=== PATIENT | male | born 1945 | race Caucasian/White ===

== ENCOUNTER 2018-05-29 08:04 | Observation (INO) ==
[2018-05-29] MEDS ORDERED: Sod Chloride 0.9% Inj 1,000 ML IV.SIG ONE (08:32)
--- NOTE | 2018-05-29 08:40 | ED ---
HPI General Chief Complaint: Syncope Stated Complaint: passed out Time Seen by Provider: 05/29/18 08:21 Source: patient Mode of arrival: ambulatory Limitations: no limitations History of Present Illness HPI narrative: Patient is a 72-year-old male with history of hypertension and colon cancer, presents the emergency room for evaluation of syncope. Patient reports that he woke up last night around midnight to use the restroom, reports that after he used the restroom, he was trying to walk to his bed and ended feeling lightheaded and dizzy and passed out. Patient was unsure how long he was passed out for. He is unsure if he hit his head. Patient reports that he was unable to get up from the floor after he had a syncopal episode, reports that he laid there all night. Patient reports that he has also been having diarrhea, reports that he had an episode of diarrhea while laying on the floor. Patient reports that this morning, he was able to get up and had multiple episodes of diarrhea before coming to the ER. Patient denies any headache, reports some dizziness, reports that he feels overall weak. Reports no chest pain, does endorse that he is feeling short of breath. Patient reports that he was seen yesterday for anxiety reaction and did have a CAT scan of his chest which showed no evidence of a pulmonary emboli. Related Data Previous Rx's Medication Instructions Recorded amlodipine 10 mg PO DAILY #14 tab 05/28/18 enalapril maleate 5 mg PO DAILY #14 tab 05/28/18 hydroxyzine pamoate [Vistaril] 50 mg PO TID PRN #20 cap 05/28/18 Allergies Allergy/AdvReac Type Severity Reaction Status Date / Time hydroxyzine Allergy Severe Dizziness Verified 05/29/18 08:17 Review of Systems ROS: all other systems reviewed are negative PMFSH History History Provided By: Patient Medical History Medical History Colon cancer (Acute) Hypertension (Acute) Surgical History Surgical History H/O vasectomy (Acute) Social History Social History Substance History: Past History Second Hand Smoke Exposure: No Smoking Status: Former smoker How Often Do You Have a Drink Containing Alcohol: Never Recent Travel in [facility] within the Last 8 Weeks: No Recent Out of Country Travel within the Last 8 Weeks: No Exam Narrative Exam Narrative: GENERAL: Mild distress SKIN: Focused skin assessment warm/dry. HEAD: Patient with a hematoma to his right forehead. Normocephalic. EYES: Pupils equal and round. No scleral icterus. No injection or drainage. ENT: No nasal bleeding or discharge. Mucous membranes pink and moist. NECK: Trachea midline. No JVD. CARDIOVASCULAR: Regular rate and rhythm. No murmur appreciated. RESPIRATORY: No accessory muscle use. Clear to auscultation. Breath sounds equal bilaterally. GASTROINTESTINAL: Abdomen soft, non-tender, nondistended. Hepatic and splenic margins not palpable. MUSCULOSKELETAL: No obvious deformities. No clubbing. No cyanosis. No edema. NEUROLOGICAL: Awake and alert. No obvious cranial nerve deficits. Motor grossly within normal limits. Normal speech. CN 2- 12 grossly intact with no neurological deficits. PSYCHIATRIC: Anxious mood and affect; insight and judgment normal. Course Initial Documented Vital Signs Temperature 97.8 F 05/29/18 08:06 Pulse Rate 87 05/29/18 08:06 Respiratory Rate 18 05/29/18 08:06 Blood Pressure 142/79 H 05/29/18 08:06 Pulse Oximetry 99 05/29/18 08:06 Last Documented Vital Signs Temperature 97.8 F 05/29/18 08:06 Pulse Rate 71 05/29/18 10:20 Respiratory Rate 18 05/29/18 10:20 Blood Pressure 150/100 H 05/29/18 10:20 Pulse Oximetry 97 05/29/18 10:20 Medical Decision Making MDM Narrative Medical decision making narrative: During the course of the patients emergency department visit, the patients history, examination, and differential diagnosis were reviewed with the patient. The patient was placed on a environmental monitoring specialist with oximetry and frequent blood pressure monitoring. The patient had an IV access obtained and blood work sent for analysis. The patient was initially provided IVF A syncope workup was initiated. Previous records were reviewed, patient did have a CTA obtained yesterday which showed a large diaphragmatic hernia on the right with herniation of the transverse colon and intra-abdominal fat into the right hemithorax. 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 Ventricles are normal for age. No evidence of midline shift, mass lesion, hemorrhage or acute infarction. Plan to admit patient for observation for syncope workup. Patient is agreeable to this Radiology studies were reviewed All labs and studies were reviewed - plan to admit for obs for syncope Case reviewed with Dr. Case who accepts to service Medical Screen Exam Complete: Yes Emergency Medical Condition: Yes Differential Diagnosis Differential Diagnosis: Syncope could be secondary from ACS, arrhythmia, intracranial hemorrhage, CVA, TIA, electrolyte abnormality, aneurysmal rupture Medical Records Medical records reviewed: Yes I reviewed the patient's medical records. Lab Data Lab results reviewed: Yes I reviewed the patient's lab results. Result diagrams: 05/29/18 08:45 05/29/18 08:45 Lab Results 05/29/18 05/29/18 05/29/18 Range/Units 08:45 08:45 08:45 CBC w Diff Auto diff final WBC 12.3 H (4.0-11.0) th/mm3 RBC 4.79 (4.50-5.90) mil/mm3 Hgb 13.8 (13.0-17.0) gm/dL Hct 41.7 (39.0-51.0) % MCV 87.0 (80.0-100.0) fL MCH 28.8 (27.0-34.0) pg MCHC 33.0 (32.0-36.0) % RDW 14.1 (11.6-17.2) % Plt Count 366 (150-450) th/mm3 MPV 7.6 (7.0-11.0) fL Neut % (Auto) 76.9 H (16.0-70.0) % Lymph % (Auto) 12.2 (9.0-44.0) % Pender % (Auto) 7.9 (0.0-8.0) % Eos % (Auto) 0.3 (0.0-4.0) % Baso % (Auto) 2.7 H (0.0-2.0) % Neut # (Auto) 9.5 H (1.8-7.7) th/mm3 Lymph # (Auto) 1.5 (1.0-4.8) th/mm3 Pender # (Auto) 1.0 H (0.0-0.9) th/mm3 Eos # (Auto) 0.0 (0.0-0.4) th/mm3 Baso # (Auto) 0.3 H (0.0-0.2) th/mm3 WBC Differential . Differential Comment . PT 11.4 (9.8-11.6) sec INR 1.1 Ratio APTT 25.0 (24.3-30.1) sec Sodium 137 (136-145) meq/L Potassium 3.6 (3.5-5.1) meq/L Chloride 105 (98-107) meq/L Carbon Dioxide 22.7 (21.0-32.0) meq/L Anion Gap 9 (5-15) meq/L BUN 19 H (7-18) mg/dL Creatinine 1.00 (0.60-1.30) mg/dL Estimated GFR 73 L (>89) mL/min Random Glucose 112 H (74-106) mg/dL Calcium 8.6 (8.5-10.1) mg/dL Magnesium 2.4 (1.5-2.5) mg/dL Total Bilirubin 0.7 (0.2-1.0) mg/dL AST 13 L (15-37) U/L ALT 18 (12-78) U/L Alkaline Phosphatase 85 (45-117) U/L Troponin I Less than 0.02 L (0.02-0.05) ng/mL B-Natriuretic Peptide (0-100) pg/mL Total Protein 6.7 (6.4-8.2) g/dL Albumin 3.1 L (3.4-5.0) g/dL 05/29/18 Range/Units 08:45 CBC w Diff WBC (4.0-11.0) th/mm3 RBC (4.50-5.90) mil/mm3 Hgb (13.0-17.0) gm/dL Hct (39.0-51.0) % MCV (80.0-100.0) fL MCH (27.0-34.0) pg MCHC (32.0-36.0) % RDW (11.6-17.2) % Plt Count (150-450) th/mm3 MPV (7.0-11.0) fL Neut % (Auto) (16.0-70.0) % Lymph % (Auto) (9.0-44.0) % Pender % (Auto) (0.0-8.0) % Eos % (Auto) (0.0-4.0) % Baso % (Auto) (0.0-2.0) % Neut # (Auto) (1.8-7.7) th/mm3 Lymph # (Auto) (1.0-4.8) th/mm3 Pender # (Auto) (0.0-0.9) th/mm3 Eos # (Auto) (0.0-0.4) th/mm3 Baso # (Auto) (0.0-0.2) th/mm3 WBC Differential Differential Comment PT (9.8-11.6) sec INR Ratio APTT (24.3-30.1) sec Sodium (136-145) meq/L Potassium (3.5-5.1) meq/L Chloride (98-107) meq/L Carbon Dioxide (21.0-32.0) meq/L Anion Gap (5-15) meq/L BUN (7-18) mg/dL Creatinine (0.60-1.30) mg/dL Estimated GFR (>89) mL/min Random Glucose (74-106) mg/dL Calcium (8.5-10.1) mg/dL Magnesium (1.5-2.5) mg/dL Total Bilirubin (0.2-1.0) mg/dL AST (15-37) U/L ALT (12-78) U/L Alkaline Phosphatase (45-117) U/L Troponin I (0.02-0.05) ng/mL B-Natriuretic Peptide 31 (0-100) pg/mL Total Protein (6.4-8.2) g/dL Albumin (3.4-5.0) g/dL Imaging Data Attestation: I personally reviewed and interpreted this imaging study as follows : Radiologist's impression: Head CT 05/29/18 08:32 CONCLUSION: 1. No acute intracranial abnormality. . ECG Data EKG Prior to Arrival: No Attestation: I personally reviewed and interpreted this ECG as follows: Interpretation: EKG at 0908: NSR at 71bpm, qt/qtc: 399/421, incomplete rbbb, no acute changes Discharge Plan Discharge Disposition Patient Disposition: 30 Still Patient Discharge Condition Condition: Stable Discharge Details Diagnosis: Syncope Physicians Team ED Provider: Mary Bosch Primary Care Provider: Primary Care Tawnya Coats Rxs /Orders / Referrals /Forms Prescriptions: No Action enalapril maleate 5 mg tablet 5 mg PO DAILY Qty: 14 RF: 0 amlodipine 10 mg tablet 10 mg PO DAILY Qty: 14 RF: 0 hydroxyzine pamoate [Vistaril] 50 mg capsule 50 mg PO TID PRN (Reason: anxiety) Qty: 20 RF: 0 Status ED Status: With Doctor
[2018-05-29 08:58] LABS: Baso # (Auto) 0.3 th/mm3 (0.0-0.2); Baso % (Auto) 2.7 % (0.0-2.0); Eos % (Auto) 0.3 % (0.0-4.0); Hematocrit 41.7 % (39.0-51.0); Hemoglobin 13.8 gm/dL (13.0-17.0); Lymph # (Auto) 1.5 th/mm3 (1.0-4.8); Lymph % (Auto) 12.2 % (9.0-44.0); Mean Corpuscular Hemoglobin 28.8 pg (27.0-34.0); Mean Platelet Volume 7.6 fL (7.0-11.0); Mono % (Auto) 7.9 % (0.0-8.0); Neut # (Auto) 9.5 th/mm3 (1.8-7.7); Neut % (Auto) 76.9 % (16.0-70.0); Platelet Count 366 th/mm3 (150-450); Red Blood Count 4.79 mil/mm3 (4.50-5.90); Red Cell Distribution Width 14.1 % (11.6-17.2); White Blood Count 12.3 th/mm3 (4.0-11.0)
[2018-05-29 09:03] LABS: Chloride 105 meq/L (98-107); Potassium 3.6 meq/L (3.5-5.1); Sodium 137 meq/L (136-145)
[2018-05-29 09:06] LABS: Calcium 8.6 mg/dL (8.5-10.1)
--- NOTE | 2018-05-29 09:06 | CT ---
EXAM DATE: 05/29/2018 9:03 AM EDT AGE/SEX: 72 years / Male INDICATIONS: Syncope. CLINICAL DATA: This is the patient's initial encounter. Patient reports that signs and symptoms have been present for 1 day and indicates a pain score of 0/10. MEDICAL/SURGICAL HISTORY: Carcinoma, colon. Hypertension. None. RADIATION DOSE: 58.03 CTDI (mGy) COMPARISON: No prior exams available for comparison. TECHNIQUE: CT of the head without contrast. Using automated exposure control and adjustment of the mA and/or kV according to patient size, radiation dose was kept as low as reasonably achievable to ob tain optimal diagnostic quality images. DICOM format image data is available electronically for revi ew and comparison. FINDINGS: Cerebrum: Mild diffuse cerebral atrophy. The ventricles are normal for age. No evidence of midline s hift, mass lesion, hemorrhage or acute infarction. No extraaxial fluid collections are seen. Posterior Fossa: The cerebellum and brainstem are intact. The 4th ventricle is midline. The cerebe llopontine angle is unremarkable. Extracranial: The visualized portion of the orbits is intact. Small mucous retention cyst in the lef t maxillary sinus. Skull: The calvaria is intact. No evidence of skull fracture. CONCLUSION: 1. No acute intracranial abnormality. . Electronically signed by: Billy Garcia MD 05/29/2018 9:04 AM EDT
[2018-05-29 09:07] LABS: Albumin 3.1 g/dL (3.4-5.0); Anion Gap 9 meq/L (5-15); Blood Urea Nitrogen 19 mg/dL (7-18); Carbon Dioxide 22.7 meq/L (21.0-32.0); Glucose,Random 112 mg/dL (74-106); INR 1.1 Ratio; Magnesium 2.4 mg/dL (1.5-2.5); Prothrombin Time 11.4 sec (9.8-11.6)
[2018-05-29 09:10] LABS: Alanine Aminotransferase 18 U/L (12-78); Aspartate Aminotransferase 13 U/L (15-37); Glomerular Filtration Rate 73 mL/min (>89)
[2018-05-29 09:12] LABS: Total Protein 6.7 g/dL (6.4-8.2)
[2018-05-29 09:13] LABS: Alkaline Phosphatase 85 U/L (45-117)
[2018-05-29] MEDS ORDERED: amLODIPine 10 MG Tablet PO ONE (11:07)
[2018-05-29] MEDS ORDERED: Bisacodyl 10 MG Supp RECTAL PRN ×2 (11:29→11:32)
[2018-05-29] MEDS ORDERED: Acetaminophen 325 MG Tablet PO PRN (11:32)
[2018-05-29] MEDS: Heparin - SQ 10,000 UNITS/ML Vial SQ SCH ×2 (13:47→20:47)
--- NOTE | 2018-05-29 14:25 | P.HP ---
History of Present Illness Primary Care Physician: No Primary Care Physician Chief Complaint: Syncope History of Present Illness: This is a 72-year-old male with a history of hypertension, anxiety and recently diagnosed colon cancer. He presents to the emergency department because of syncope. States he used the restroom around midnight last night and developed dizziness, spinning sensation and pass out. No chest pain, palpitations, shortness of breath, diaphoresis, nausea, numbness and focal weakness. He was on the ground for unknown period of time. He bumped his right shoulder but denies hitting his head. He denies headache, neck pain and back pain. Patient recently started on Atarax and took 2 doses yesterday after he was seen in the emergency room for anxiety. Patient thinks atarax contributed to his symptoms. At that time CTA was negative for PE. He also reports of loose stools starting last night usually he is constipated because of his colon cancer. Stools are admixed with blood no mucus. Denies fever, chills and abdominal pain. Despite receiving a liter of fluid bolus in the ED, he is still orthostatic on the floor with a blood pressure of 168/79 lying and 129/85 standing. EKG tracing independently reviewed by me with sinus rhythm incomplete right bundle branch block, left anterior fascicular block and LVH. All other systems reviewed negative Review of Systems All other systems reviewed negative except as stated in HPI PMFSH - History History Provided By: Patient - Medical History Medical History: Medical History (Last Reviewed 05/29/18 @ 14:30 by Tip Case MD) Colon cancer Hypertension - Surgical History Surgical History: Surgical History (Last Reviewed 05/29/18 @ 14:31 by Tip Case MD) H/O vasectomy - Family History Family History: Family History (Last Updated 05/29/18 @ 14:31 by Tip Case MD) Other Family history of cancer - Tobacco History Second Hand Smoke Exposure: No Smoking Status: Former smoker - Alcohol History How Often Do You Have a Drink Containing Alcohol: Never - Substance Use History Substance History: Past History - Travel History Recent Travel in the [place] Within the Last 8 Weeks: No Recent Travel Out of the Country Within the Last 8 Weeks: No - Immunization History Tetanus Immunization: >5 Years Hx Influenza Vaccine This Season: No Medications and Allergies Active Medications: Active Medications Acetaminophen (Tylenol) 650 mg PO Q4H PRN PRN Reason: Temp > 100.4 Bisacodyl (Dulcolax Supp) 10 mg RECTAL DAILY PRN PRN Reason: SEVERE CONSITIPATION Clonidine HCl (Catapres) 0.1 mg PO Q6H PRN PRN Reason: SEE LABEL COMMENTS Enalaprilat (Vasotec Inj) 1.25 mg IV.PUSH Q6H PRN PRN Reason: SEE LABEL COMMENTS Heparin Sodium (Porcine) (Heparin Inj) 5,000 units SQ Q12HR [facility] Last Admin: 05/29/18 13:47 Dose: Not Given Hydroxyzine Pamoate (Vistaril) 50 mg PO TID PRN PRN Reason: anxiety Potassium Chloride/Sodium Chloride (Ns + Kcl 20 Meq Inj) 1,000 mls @ 100 mls/ hr IV.CONT .Q10H [facility] Last Admin: 05/29/18 13:46 Dose: 100 mls/hr Ondansetron HCl (Zofran Inj) 4 mg IV.PUSH Q6H PRN PRN Reason: NAUSEA OR VOMITING Sennosides (Senokot) 17.2 mg PO Q12H PRN PRN Reason: Moderate Constipation Sodium Chloride (Ns Flush) 2 ml IV.FLUSH PRN PRN PRN Reason: FLUSH AFTER USING IV ACCESS Allergies Allergy/AdvReac Type Severity Reaction Status Date / Time hydroxyzine Allergy Severe Dizziness Verified 05/29/18 08:17 Exam Vital signs: Vital Signs 05/29/18 08:06 05/29/18 10:20 05/29/18 12:00 Temperature 97.8 F 95.4 F L Pulse Rate 87 71 70 Respiratory Rate 18 18 20 Blood Pressure 142/79 H 150/100 H 160/84 H Pulse Oximetry 99 97 96 05/29/18 12:20 Temperature Pulse Rate 78 Respiratory Rate 18 Blood Pressure 143/80 H Pulse Oximetry 97 Intake & Output 05/28/18 05/29/18 05/29/18 18:59 06:59 18:59 Intake Total 1000 / 1000 Balance 1000 / 1000 Weight 78.6 kg Intake: IV 1000 / 1000 NS Inj 1,000 ML @ Wide Open IV. 1000 / 1000 SIG BOLUS ONE Rx#:[id number] Narrative: GENERAL: Well-developed, well-nourished in no distress SKIN: Warm and dry. HEAD: Atraumatic. Normocephalic. EYES: Pupils equal and round. No scleral icterus. No injection or drainage. ENT: No nasal bleeding or discharge. Dry oral mucosa NECK: Trachea midline. No JVD. CARDIOVASCULAR: Regular rate and rhythm. RESPIRATORY: No accessory muscle use. Clear to auscultation. Breath sounds equal bilaterally. GASTROINTESTINAL: Abdomen soft, non-tender, nondistended. MUSCULOSKELETAL: Extremities without clubbing, cyanosis, or edema. No obvious deformities. NEUROLOGICAL: Awake and alert. No obvious cranial nerve deficits. Motor grossly within normal limits. Five out of 5 muscle strength in the arms and legs. Normal speech. PSYCHIATRIC: Appropriate mood and affect; insight and judgment normal. Results - Labs CBC & Chem 7: 05/29/18 08:45 05/29/18 08:45 Labs: Laboratory Results - last 24 hr 05/29/18 05/29/18 05/29/18 08:45 08:45 08:45 CBC w Diff Auto diff final WBC 12.3 H RBC 4.79 Hgb 13.8 Hct 41.7 MCV 87.0 MCH 28.8 MCHC 33.0 RDW 14.1 Plt Count 366 MPV 7.6 Neut % (Auto) 76.9 H Lymph % (Auto) 12.2 Hamilton % (Auto) 7.9 Eos % (Auto) 0.3 Baso % (Auto) 2.7 H Neut # (Auto) 9.5 H Lymph # (Auto) 1.5 Hamilton # (Auto) 1.0 H Eos # (Auto) 0.0 Baso # (Auto) 0.3 H WBC Differential . Differential Comment . PT 11.4 INR 1.1 APTT 25.0 Sodium 137 Potassium 3.6 Chloride 105 Carbon Dioxide 22.7 Anion Gap 9 BUN 19 H Creatinine 1.00 Estimated GFR 73 L Random Glucose 112 H Calcium 8.6 Magnesium 2.4 Total Bilirubin 0.7 AST 13 L ALT 18 Alkaline Phosphatase 85 Troponin I Less than 0.02 L B-Natriuretic Peptide Total Protein 6.7 Albumin 3.1 L 05/29/18 08:45 CBC w Diff WBC RBC Hgb Hct MCV MCH MCHC RDW Plt Count MPV Neut % (Auto) Lymph % (Auto) Hamilton % (Auto) Eos % (Auto) Baso % (Auto) Neut # (Auto) Lymph # (Auto) Hamilton # (Auto) Eos # (Auto) Baso # (Auto) WBC Differential Differential Comment PT INR APTT Sodium Potassium Chloride Carbon Dioxide Anion Gap BUN Creatinine Estimated GFR Random Glucose Calcium Magnesium Total Bilirubin AST ALT Alkaline Phosphatase Troponin I B-Natriuretic Peptide 31 Total Protein Albumin - Imaging Impressions Head CT 05/29/18 08:32 CONCLUSION: 1. No acute intracranial abnormality. . Caprini VTE Risk Assessment Caprini VTE Risk Assessment: Moderate/High Risk (score >= 2) Caprini Risk Assessment Model: Point Value = 1 Point Value = 2 Point Value = 3 Point Value = 5 Age 41-60 Minor surgery BMI > 25 kg/m2 Swollen legs Varicose veins or History of unexplained or recurrent spontaneous Oral contraceptives or hormone replacement Sepsis (< 1 month) Serious lung disease, including pneumonia (< 1 month) Abnormal pulmonary function Acute myocardial infarction Congestive heart failure (< 1 month) History of inflammatory bowel disease Medical patient at bed rest Age 61-74 Arthroscopic surgery Major open surgery (> 45 min) Laparoscopic surgery (> 45 min) Malignancy Confined to bed (> 72 hours) Immobilizing plaster cast Central venous access Age >= 75 History of VTE Family history of VTE Factor V Leiden Prothrombin [id number] Lupus anticoagulant Anticardiolipin antibodies Elevated serum homocysteine Heparin-induced thrombocytopenia Other congenital or acquired thrombophilia Stroke (< 1 month) Elective arthroplasty Hip, pelvis, or leg fracture Acute spinal cord injury (< 1 month) Prophylaxis Regimen: Total Risk Factor Score Risk Level Prophylaxis Regimen 0-1 Low Early ambulation 2 Moderate Order ONE of the following: *Sequential Compression Device (SCD) *Heparin 5000 units SQ BID 3-4 Higher Order ONE of the following medications: *Heparin 5000 units SQ TID *Enoxaparin/Lovenox 40 mg SQ daily (WT < 150 kg, CrCl > 30 mL/min) *Enoxaparin/Lovenox 30 mg SQ daily (WT < 150 kg, CrCl > 10-29 mL/min) *Enoxaparin/Lovenox 30 mg SQ BID (WT < 150 kg, CrCl > 30 mL/min) AND/OR *Sequential Compression Device (SCD) 5 or more Highest Order ONE of the following medications: *Heparin 5000 units SQ TID (Preferred with Epidurals) *Enoxaparin/Lovenox 40 mg SQ daily (WT < 150 kg, CrCl > 30 mL/min) *Enoxaparin/Lovenox 30 mg SQ daily (WT < 150 kg, CrCl > 10-29 mL/min) *Enoxaparin/Lovenox 30 mg SQ BID (WT < 150 kg, CrCl > 30 mL/min) AND *Sequential Compression Device (SCD) Assessment and Plan - Plan This is a 72-year-old male with a history of hypertension, anxiety and recently diagnosed colon cancer. He presents to the emergency department because of dizziness, spinning sensation leading to syncope. Patient recently started on Atarax and took 2 doses yesterday after he was seen in the emergency room for anxiety. At that time CTA was negative for PE. He also reports of loose stools starting last night. He is orthostatic on the floor with a blood pressure of 168/79 lying and 129/85 standing despite fluid bolus in the ED Syncope which is multifactorial (dehydration and medications). He is orthostatic secondary to dehydration and use of antihypertensive. At this time he is neurologically intact. Head CT without acute findings. Continue IV hydration and hold BP medications. Atarax has been discontinued. Repeat orthostatics in the morning. Fall precautions. Obtain CK to check for rhabdomyolysis Diarrhea. He has mild leukocytosis. Obtain C. difficile. Start Lactinex. DVT prophylaxis with SCD and subcu heparin PT evaluation Discharge Planning: Possible discharge in 1-2 day
--- NOTE | 2018-05-29 15:40 | P.DCO ---
- Diagnosis (1) Syncope - Physical Therapy Order: Evaluate and treat, Improve ambulation, Strength and gait training - Home Health Nursing Order: Signs/symptoms of disease process, Medication education-adverse effect - Case Management Consult Yes - Certification I have seen patient Martin Peña on 05/29/18. My clinical findings support the need for the requested home health care services because: Deconditioned with increased weakness, Medication compliance is questionable I certify that my clinical findings support that this patient is homebound because: Need for psychosocial assistance (1) Syncope Qualifiers: Syncope type: unspecified Qualified Code(s): R55 - Syncope and collapse
--- NOTE | 2018-05-29 17:43 | ECG ---
Date Performed: 05/29/2018 Time Performed: 09:08:58 PTAGE: 72 years EKG: Sinus rhythm PATTERN CONSISTENT WITH PULMONARY DISEASE INCOMPLETE RIGHT BUNDLE BRANCH BLOCK LEFT ANTERIOR FASCICU LAR BLOCK LEFT VENTRICULAR HYPERTROPHY AND ST-T CHANGE POSSIBLE SEPTAL MYOCARDIAL INFARCTION ABNORMAL ECG PREVIOUS TRACING : 05/28/2018 13.01 DOCTOR: Brian Caba Interpretating Date/Time 05/29/2018 17:38:50
[2018-05-29] MEDS ORDERED: Senna/Docusate Sodium 8.6/50 MG Tablet PO SCH (21:00)
[2018-05-30 06:03] LABS: Baso % (Auto) 0.6 % (0.0-2.0); Eos # (Auto) 0.2 th/mm3 (0.0-0.4); Eos % (Auto) 3.1 % (0.0-4.0); Hematocrit 34.1 % (39.0-51.0); Lymph # (Auto) 1.3 th/mm3 (1.0-4.8); Lymph % (Auto) 17.4 % (9.0-44.0); Mean Corpuscular HGB Conc 32.1 % (32.0-36.0); Mean Corpuscular Hemoglobin 27.6 pg (27.0-34.0); Mean Platelet Volume 7.6 fL (7.0-11.0); Mono # (Auto) 0.8 th/mm3 (0.0-0.9); Mono % (Auto) 9.8 % (0.0-8.0); Neut # (Auto) 5.4 th/mm3 (1.8-7.7); Neut % (Auto) 69.1 % (16.0-70.0); Platelet Count 280 th/mm3 (150-450); Red Blood Count 3.97 mil/mm3 (4.50-5.90); White Blood Count 7.7 th/mm3 (4.0-11.0)
[2018-05-30 06:14] LABS: Chloride 108 meq/L (98-107); Potassium 3.6 meq/L (3.5-5.1); Sodium 140 meq/L (136-145)
[2018-05-30 06:17] LABS: Calcium 7.8 mg/dL (8.5-10.1)
[2018-05-30 06:18] LABS: Anion Gap 7 meq/L (5-15); Blood Urea Nitrogen 16 mg/dL (7-18); Glucose,Random 92 mg/dL (74-106)
[2018-05-30 06:21] LABS: Glomerular Filtration Rate Greater Than 89 mL/min (>89)
[2018-05-30 06:34] LABS: Creatine Kinase 89 U/L (39-308)
[2018-05-30] MEDS ORDERED: ALPRAZolam 0.25 MG Tablet PO PRN (08:45)
[2018-05-30] MEDS: Heparin - SQ 10,000 UNITS/ML Vial SQ SCH (09:08)
--- NOTE | 2018-05-30 09:23 | P.PN ---
Subjective Interval history: Follow-up syncope. No recurrence. Ambulated with physical therapy. No more dizziness. Improving loose stools. Denies abdominal pain. He is stressed out because of upcoming treatment for colon cancer. He did not tolerate hydroxyzine. He used Xanax in the past without problems. Counseled regarding benzodiazepines. Repeat orthostatic improved Physical Exam Vital signs: Vital Signs 05/29/18 10:20 05/29/18 12:00 05/29/18 12:05 Temperature 95.4 F L Pulse Rate 71 70 Respiratory Rate 18 20 Blood Pressure 150/100 H 160/84 H 129/85 Pulse Oximetry 97 96 05/29/18 12:10 05/29/18 12:20 05/29/18 15:40 Temperature Pulse Rate 78 Respiratory Rate 18 Blood Pressure 168/79 H 143/80 H Pulse Oximetry 97 96 05/29/18 16:00 05/29/18 20:00 05/30/18 00:00 Temperature 97.1 F L 97.1 F L 96.7 F L Pulse Rate 73 96 H 65 Respiratory Rate 20 20 18 Blood Pressure 123/76 137/74 139/72 Pulse Oximetry 95 95 05/30/18 04:08 05/30/18 08:00 Temperature 97.3 F L 97.1 F L Pulse Rate 68 72 Respiratory Rate 18 21 Blood Pressure 160/86 H 178/91 H Pulse Oximetry 95 93 L Intake & Output 05/29/18 05/30/18 05/30/18 18:59 06:59 18:59 Intake Total 1600 / 1600 1480 / 1480 240 / 240 Balance 1600 / 1600 1480 / 1480 240 / 240 Weight 78.6 kg 80.3 kg Intake: IV 1000 / 1000 1000 / 1000 NS + KCl 20 mEq Inj 1,000 ML @ 1000 / 1000 100 mls/hr IV.CONT .Q10H ROMAN Rx #:[id number] NS Inj 1,000 ML @ Wide Open IV. 1000 / 1000 SIG BOLUS ONE Rx#:[id number] Oral 600 / 600 480 / 480 240 / 240 Other: # Voids 3 Narrative: GENERAL: Well-developed, well-nourished in no distress SKIN: Warm and dry. CARDIOVASCULAR: Regular rate and rhythm. RESPIRATORY: No accessory muscle use. Clear to auscultation. Breath sounds equal bilaterally. GASTROINTESTINAL: Abdomen soft, non-tender, nondistended. MUSCULOSKELETAL: Extremities without clubbing, cyanosis, or edema. No obvious deformities. NEUROLOGICAL: Awake and alert. No obvious cranial nerve deficits. Motor grossly within normal limits. Five out of 5 muscle strength in the arms and legs. Normal speech. PSYCHIATRIC: Appropriate mood and affect; insight and judgment normal. Results - Labs CBC & Chem 7: 05/30/18 05:02 05/30/18 05:02 Laboratory Results - last 24 hr 05/29/18 05/29/18 05/30/18 08:45 08:50 05:02 CBC w Diff Auto diff final WBC 7.7 RBC 3.97 L Hgb 11.0 L D Hct 34.1 L MCV 86.0 MCH 27.6 MCHC 32.1 RDW 14.0 Plt Count 280 MPV 7.6 Neut % (Auto) 69.1 Lymph % (Auto) 17.4 Cobb % (Auto) 9.8 H Eos % (Auto) 3.1 Baso % (Auto) 0.6 Neut # (Auto) 5.4 Lymph # (Auto) 1.3 Cobb # (Auto) 0.8 Eos # (Auto) 0.2 Baso # (Auto) 0.0 WBC Differential . Differential Comment . Sodium Potassium Chloride Carbon Dioxide Anion Gap BUN Creatinine Estimated GFR Random Glucose Calcium Total Creatine Kinase 86 B-Natriuretic Peptide 31 05/30/18 05:02 CBC w Diff WBC RBC Hgb Hct MCV MCH MCHC RDW Plt Count MPV Neut % (Auto) Lymph % (Auto) Cobb % (Auto) Eos % (Auto) Baso % (Auto) Neut # (Auto) Lymph # (Auto) Cobb # (Auto) Eos # (Auto) Baso # (Auto) WBC Differential Differential Comment Sodium 140 Potassium 3.6 Chloride 108 H Carbon Dioxide 25.0 Anion Gap 7 BUN 16 Creatinine 0.65 Estimated GFR Greater than 89 Random Glucose 92 Calcium 7.8 L D Total Creatine Kinase 89 B-Natriuretic Peptide - Imaging ITS Impressions Head CT 05/29/18 08:32 CONCLUSION: 1. No acute intracranial abnormality. . - Procedures none Assessment and Plan - Assessment (1) Syncope Code(s): R55 - Syncope and collapse Status: Acute - Plan This is a 72-year-old male with a history of hypertension, anxiety and recently diagnosed colon cancer. He presents to the emergency department because of dizziness, spinning sensation leading to syncope. Patient recently started on Atarax and took 2 doses yesterday after he was seen in the emergency room for anxiety. At that time CTA was negative for PE. He also reports of loose stools starting last night. He is orthostatic on the floor with a blood pressure of 168/79 lying and 129/85 standing despite fluid bolus in the ED Syncope which is multifactorial (dehydration and medications). He is orthostatic secondary to dehydration and use of antihypertensive. At this time he is neurologically intact. Head CT without acute findings. Improved orthostatics off IV hydration. Continue to hold BP medications will request home health care visiting nurse. Atarax has been discontinued. Fall precautions. Diarrhea. He has mild leukocytosis which is improved. Follow-up C. difficile and KUB. Continue Lactinex Anxiety. Xanax as needed DVT prophylaxis with SCD and subcu heparin Discharge Planning: Discharge patient to home Condition on discharge: Improved Regular Diet as tolerated Ad Marilin activity no driving Rx written: Xanax and Lactinex Follow-up with primary care physician, oncology, radiation oncology and colorectal surgery (1) Syncope Qualifiers: Syncope type: unspecified Qualified Code(s): R55 - Syncope and collapse
[2018-05-30 11:54] VITALS: RESP 20
--- NOTE | 2018-05-30 13:37 | XR ---
EXAM DATE: 05/30/2018 12:00 AM EDT AGE/SEX: 72 years / Male INDICATIONS: Diarrhea. CLINICAL DATA: This is the patient's subsequent encounter. Patient reports that signs and symptoms h ave been present for 3 days and indicates a pain score of 0/10. MEDICAL/SURGICAL HISTORY: Carcinoma, colon. Hypertension. None. COMPARISON: No prior exams available for comparison. FINDINGS: The examination demonstrates a moderate amount of stool in the colon. No findings to indicate a bowel obstruction are seen. No free intraperitoneal air is evident. The visualized bony structures demonstrate degenerative change throughout the lumbar spine and a mild S-shaped scoliosis. CONCLUSION: Moderate amount of stool within the colon otherwise unremarkable examination. Electronically signed by: Felton Gomez MD 05/30/2018 1:36 PM EDT
[2018-05-30 16:29] VITALS: BP 141/75; PULSE 74; TEMP 97.1; O2SAT 95
== END 2018-05-30 17:31 | disposition home or self-care (01) ==
LOC: PHEDA 08:04 → PHED 08:04 → PHEDA 12:25 → PH3 12:30
PROVIDERS: ADMIT Internal Medicine; ATTEND Internal Medicine